=== PATIENT | female | born 1990 | race Caucasian/White ===

== ENCOUNTER 2023-07-31 13:31 | Emergency (ER) | payer BC ==
[~2023-07-31] VITALS: Ht 170.2 cm; Wt 71.2 kg
[2023-07-31 13:34] VITALS: TEMP 98.4
[2023-07-31] MEDS ORDERED: NORV5TAB PO (13:47)
[2023-07-31] MEDS ORDERED: methocarbamoL 500 MG TAB PO ONE (16:40)
[2023-07-31] MEDS ORDERED: IBUPROFEN 600MG TAB PO ONE (16:40)
[2023-07-31] MEDS ORDERED: IBUP-1022 PO (16:50)
[2023-07-31] MEDS ORDERED: METH-1164 PO (16:50)
[2023-07-31 16:58] VITALS: BP 150/99; O2SAT 100
== END 2023-07-31 17:05 | disposition home or self-care (01) ==
LOC: M ED 13:31
DX: S70.02XA Contusion of left hip, initial encounter (principal); S80.02XA Contusion of left knee, initial encounter; W19.XXXA Unspecified fall, initial encounter; Y92.009 Unspecified place in unspecified non-institutional (private) residence as the place of occurrence of the external cause; Y93.89 Activity, other specified; Y99.9 Unspecified external cause status; Z88.0 Allergy status to penicillin; Z91.011 Allergy to milk products; Z91.018 Allergy to other foods; Z79.1 Long term (current) use of non-steroidal anti-inflammatories (NSAID); Z79.899 Other long term (current) drug therapy